=== PATIENT | male | born 1990 | race Caucasian/White ===

== ENCOUNTER 2018-05-20 18:16 | Emergency (ER) | payer BC ==
[~2018-05-20] VITALS: Ht 180.3 cm; Wt 108.9 kg
[2018-05-20 18:33] VITALS: BP 115/73
[2018-05-20] MEDS ORDERED: TRIAMCINOLONE 40MG/ML 1ML VIAL IM ONE (19:15)
[2018-05-20] MEDS ORDERED: FAMOTIDINE 20 MG TAB PO ONE (19:15)
== END 2018-05-20 19:43 | disposition home or self-care (01) ==
LOC: ER 18:16
DX: T78.40XA Allergy, unspecified, initial encounter (principal); Z88.8 Allergy status to other drugs, medicaments and biological substances
CPT/HCPCS: 96372; 99283; J3301; 90471